=== PATIENT | male | born 1955 | race Caucasian/White ===

== ENCOUNTER 2022-09-25 06:34 | Day surgery (SDC) | payer MEDICARE, OTHER ==
[~2022-09-25] VITALS: Ht 182.9 cm; Wt 86.6 kg
[~2022-09-25 06:34] MED LIST: ELIQUIS5 MG PO; FISH OIL 1,201200 MG PO; FLECAINIDE ACET50 MG PO; LIPITOR10 MG PO; MAGNESIUM GLUCO27 MG PO; METOPROLOL SUCC25 MG PO
[2022-09-25 06:59] VITALS: BP 147/75
--- NOTE | 2022-09-25 08:10 | NUR ---
09/25/22 0810 Cha Wall 0805-PATIENT ARRIVED TO PACU ON RA RR EVEN. PATIENT VERY DROWSY DENIES PAIN OR NAUSEA. ABDOMEN SOFT ENCOURAGED TO PASS GAS. IVF INFUSING
[2022-09-25 09:10] VITALS: BP 141/78
--- NOTE | 2022-09-25 09:15 | NUR ---
LE 0905 PATIENT BACK TO DAY SURGERY. REPORT RECIEVED FROM ALIS ROSS. PATIENT ALERT AND ORIENTED. BREATHING EQUAL AND UNLABORED. OXYGEN SATURATIONS ABOVE 90% ON ROOM AIR. NO DRAINAGE FROM SURGICAL SITE. PATIENT DENIES PAIN OR BEING NAUSEATED. IVF INFUSING. PATIENT STATES "I WOULD LIKE TO GO HOME NOW." LE 0910 PATIENT RIDE CALLED AND HERE. DISCHARGE INSTRUCTIONS GIVEN AND UNDERSTOOD. NO QUESTIONS AT THIS TIME. PATIENT IV D/C'D WNL. PATIENT WAS WHEELED OUT OF FACILITY WITH NO FUTHER NEEDS.
--- NOTE | 2022-09-25 10:04 | OR ---
[facility] [address], [place] [address] Signed DATE OF OPERATION: 09/25/2022 SURGEON: Minal Oleary MD PREOPERATIVE DIAGNOSES: 1. Screening. 2. External hemorrhoids. 3. Diverticulosis on CT scan. POSTOPERATIVE DIAGNOSES: 1. Minimal internal and external hemorrhoids. 2. No visible diverticulosis. PROCEDURE: Colonoscopy without biopsy. ESTIMATED BLOOD LOSS: None. INDICATIONS: Amarjit is a 67-year-old gentleman, who returns for his followup colonoscopy. 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 I helped him in 2010 at the age of 55 for screening colonoscopy. He did have a little external hemorrhoid tissue at that time. He had done well with Versed and fentanyl. We asked him to return in 10 years. COVID pushed that out just a bit. In the meantime, he had a CT scan of the abdomen and pelvis performed and apparently, he does have some diverticulosis. He said he has no lower GI complaints. There is no family history of colon cancer or polyps. In the office, I gave him a pamphlet on colonoscopy. We reviewed the nature of the test. There is risk including, but not limited to gas bloating, crampy abdominal pain, bleeding, perforation requiring surgery, and missed diagnosis. We also reviewed the written instructions for the bowel prep line by line. We had him hold his Eliquis five days prior to the procedure. His other medications were fine. We reviewed the need for IV conscious sedation. He had expressed understanding and wished to proceed. DESCRIPTION OF PROCEDURE: Amarjit was taken into our endoscopy suite and placed in the left lateral decubitus position. He was given 5 mg of Versed and 125 mcg of fentanyl to cover the case. A digital rectal exam was performed and he has a little bit induration to the prostate. He has very minimal external hemorrhoid tissue. He had good sphincter tone. There were Electronically Signed By: MINAL OLEARY MD 09/25/22 1004 PATIENT NAME: AMARJIT KIRBY OPERATIVE REPORT DATE OF : 51 REPORT #: [id number] PHYSICIAN: MINAL OLEARY MD PCP: Alisia SALCIDO MD REPORT IS CONFIDENTIAL AND NOT TO BE RELEASED WITHOUT AUTHORIZATION [facility] [address], [place] [address] Signed no masses. The adult colonoscope was introduced and advanced all around into the cecum under direct visualization of the camera. He needed just a little extra sedation and abdominal compression in order to advance the scope. His prep was good. We could easily see the appendiceal orifice and ileocecal valve. The scope was then slowly withdrawn. We took pictures throughout for photodocumentation. I did not specifically find any diverticula in the colon. There were no polyps. The rectum was unremarkable. Upon retroflexion of the scope, he has very minimal internal hemorrhoid tissue. After this, the gas was suctioned out and the colonoscope removed. Amarjit tolerated the procedure quite well. RECOMMENDATIONS: Amarjit can return in 10 years for repeat screening colonoscopy so long as his health holds up. Minal Oleary MD ALB/MODL /[id number] cc: REZA Ward MD Copies: TERRELL PACHECO ANDREW L MD ~ Electronically Signed By: MINAL OLEARY MD 09/25/22 1004 PATIENT NAME: AMARJIT KIRBY OPERATIVE REPORT DATE OF : 51 REPORT #: [id number] PHYSICIAN: MINAL OLEARY MD PCP: Alisia SALCIDO MD REPORT IS CONFIDENTIAL AND NOT TO BE RELEASED WITHOUT AUTHORIZATION
--- NOTE | 2022-09-25 10:52 | NUR ---
PT ALERT, ORIENTED AND HAS HAD PREVIOUS SCOPE. PT SEEMED TO DEAL WELL WITH PREP. PT HAS RIDE ARRANGED AT NE.ALL QUESTIONS ASKED ANSWERED. PT ASKED FOR PRAYER, GAVE BLESSING AND WILL FOLLOW
== END 2022-09-25 09:10 | disposition home or self-care (01) ==
LOC: OPS 06:34 → DS 06:34 → OPS 07:30 → DS 07:30 → OPS 09:10
PROVIDERS: ATTEND Colon & Rectal Surgery
PROC: 0DJD8ZZ Inspection of Lower Intestinal Tract, Via Natural or Artificial Opening Endoscopic (ICD-10-PCS; principal; 2022-09-25 07:30)
DX: Z12.11 Encounter for screening for malignant neoplasm of colon (principal); K64.4 Residual hemorrhoidal skin tags; K64.8 Other hemorrhoids; E78.5 Hyperlipidemia, unspecified; I48.91 Unspecified atrial fibrillation; I10 Essential (primary) hypertension; Z79.01 Long term (current) use of anticoagulants
CPT/HCPCS: 99153; G0500; J2250; J3010; J7121